=== PATIENT | female | born 1930 | race Caucasian/White ===

== ENCOUNTER 2018-10-26 21:37 | Emergency (ER) | payer MEDICARE, OTHER ==
[~2018-10-26] VITALS: Wt 115.0 kg
[~2018-10-26 21:37] MED LIST: AMLO5TAB4 PO; FURO20TA3 PO; GABA300C16 PO; GLIM4TAB PO; HYDR-843 PO; IBUP-1542 PO; LORA0.5T PO; MECL-77 PO; MELO7.5O2 PO; MTF1000T PO; OLME1TAB20 PO; PROP20TA4 PO; TRAM50TA2 PO; ZOLP5TAB7 PO
[2018-10-26] MEDS ORDERED: SOD CHLORIDE 0.9% 1,000 ML IV STA (21:44)
[2018-10-26] MEDS ORDERED: morphine 4 MG/ML VIAL IV STA (21:58)
--- NOTE | 2018-10-26 23:41 | ERD ---
ER Documentation Chief Complaint Chief Complaint bib ra from home for 4 days diarrhea, taking atb po HPI 88-year-old female with chronic right hip and leg pain who presents to the emergency room with diarrhea. The family reports at least 1 week of diarrhea possibly 2 weeks of diarrhea intermittently treated with Imodium and recently started on Flagyl over the last 2 days. The patient is having diarrhea mostly at night starting at 1 AM. Occasionally waking her up. However during the day the patient is having normal bowel movements. Patient denies any fevers or chills. Only antibiotic is the Flagyl started 2 days ago. No recent travel or sick contacts. Patient denies any significant abdominal discomfort. ROS All systems reviewed and are negative except as per history of present illness. Medications Home Meds Active Scripts Tramadol HCl (Tramadol HCl) 50 Mg Tablet, 100 MG PO q6h PRN for PAIN, #30 TAB Prov:AMINTA CHENG 11/10/15 Meloxicam* (Mobic*) 7.5 Mg/5 Ml Oral.susp, 7.5 MG PO BID, #60 ML Prov:AMINTA CHENG 11/10/15 Reported Medications Meclizine Hcl* (Meclizine Hcl*) 25 Mg Tablet, 25 MG PO Q8H PRN for DIZZINESS, TAB 11/08/15 Hydroxyzine Hcl* (Hydroxyzine Hcl*) 25 Mg Tablet, 25 MG PO Q8H PRN for ITCHING, #30 TAB 11/08/15 Propranolol Hcl* (Propranolol Hcl*) 20 Mg Tablet, 20 MG PO TID, TAB 11/08/15 Olmesartan-Hydrochlorothiazide (Benicar HCT) 40-25 Mg Tablet, 1 TAB PO DAILY, #30 TAB 11/08/15 Glimepiride* (Glimepiride*) 4 Mg Tablet, 4 MG PO BID, TAB 16 Furosemide* (Furosemide*) 20 Mg Tablet, 20 MG PO DAILY, #60 TAB 11/08/15 Gabapentin* (Gabapentin*) 300 Mg Capsule, 300 MG PO QHS, #60 CAP 11/08/15 Metformin* (Glucophage*) 1,000 Mg Tablet, 1000 MG PO BID, #60 TAB 11/08/15 Zolpidem Tartrate* (Zolpidem Tartrate*) 5 Mg Tablet, 5 MG PO QHS PRN for INSOMNIA, #30 TAB 11/08/15 Lorazepam* (Lorazepam*) 0.5 Mg Tablet, 0.5 MG PO Q8 PRN for ANXIETY, TAB 11/08/15 Ibuprofen* (Ibuprofen*) 600 Mg Tablet, 600 MG PO Q6H PRN for PAIN, TAB 11/08/15 Amlodipine Besylate* (Norvasc*) 5 Mg Tablet, 5 MG PO DAILY, TAB 11/08/15 Allergies Allergies: Coded Allergies: No Known Allergy (Unverified , 11/08/15) PMhx/Soc History of Surgery: No Anesthesia Reaction: No Hx Neurological Disorder: No Hx Respiratory Disorders: No Hx Cardiac Disorders: No Hx Psychiatric Problems: No Hx Miscellaneous Medical Probl: No Hx Alcohol Use: No Hx Substance Use: No Hx Tobacco Use: No Smoking Status: Never smoker FmHx Family History: No diabetes Physical Exam Vitals Vital Signs Date Temp Pulse Resp B/P (MAP) Pulse Ox O2 O2 Flow FiO2 Time Delivery Rate 10/26/18 98.7 85 18 126/65 100 21:41 (85) 10/26/18 98.7 82 18 130/70 96 Room Air 21:41 (90) Physical Exam General: Well developed, well nourished, no acute distress Head: Normocephalic, atraumatic. Eyes: Pupils equally reactive, EOM intact ENT: Moist mucous membranes Neck: Supple, no lymphadenopathy Respiratory: Lungs clear bilaterally, no distress Cardiovascular: RRR, no murmurs, rubs, or gallops Abdominal: Soft, non-tender, non-distended, no peritoneal signs : Deferred MSK: No edema, no unilateral swelling, 5/5 strength Neurologic: Alert and oriented, moving all extremities, normal speech, no focal weakness, no cerebellar signs Skin: No rash Psych: Normal mood Result Diagram: 10/26/18214910/26/182149 Results 24 hrs Laboratory Tests Test 10/26/18 21:50 White Blood Count 7.2 10^3/ul Red Blood Count 3.80 10^6/ul Hemoglobin 10.1 g/dl Hematocrit 33.2 % Mean Corpuscular Volume 87.4 fl Mean Corpuscular Hemoglobin 26.6 pg Mean Corpuscular Hemoglobin Concent 30.4 g/dl Red Cell Distribution Width 13.5 % Platelet Count 276 10^3/UL Mean Platelet Volume 9.8 fl Immature Granulocytes % 0.600 % Neutrophils % 66.1 % Lymphocytes % 21.1 % Monocytes % 8.0 % Eosinophils % 3.5 % Basophils % 0.7 % Nucleated Red Blood Cells % 0.0 /100WBC Immature Granulocytes # 0.040 10^3/ul Neutrophils # 4.8 10^3/ul Lymphocytes # 1.5 10^3/ul Monocytes # 0.6 10^3/ul Eosinophils # 0.3 10^3/ul Basophils # 0.1 10^3/ul Nucleated Red Blood Cells # 0.0 10^3/ul Sodium Level 138 mmol/L Potassium Level 3.9 mmol/L Chloride Level 103 mmol/L Carbon Dioxide Level 27 mmol/L Anion Gap 8 Blood Urea Nitrogen 7 mg/dl Creatinine 0.62 mg/dl Est Glomerular Filtrat Rate mL/min mL/min Glucose Level 184 mg/dl Calcium Level 10.0 mg/dl Total Bilirubin 0.1 mg/dl Direct Bilirubin 0.00 mg/dl Indirect Bilirubin 0.1 mg/dl Aspartate Amino Transf (AST/SGOT) 17 IU/L Alanine Aminotransferase (ALT/SGPT) 11 IU/L Alkaline Phosphatase 47 IU/L Total Protein 6.8 g/dl Albumin 3.9 g/dl Globulin 2.90 g/dl Albumin/Globulin Ratio 1.34 Lipase 35 U/L Current Medications Medications Dose Sig/Mine Start Time Status Last (Trade) Ordered Route PRN Stop Time Admin Dose Reason Admin Sodium 1,000 ml @ Q1H STAT 10/26/18 DC 10/26/18 Chloride 1,000 mls/hr IV 21:44 21:56 10/26/18 22:43 Morphine 4 mg ONCE STAT 10/26/18 DC 10/26/18 Sulfate IV 21:58 22:01 (morphine) 10/26/18 21:59 Procedures/MDM EKG, MONITORS, & DIAGNOSTIC IMAGING: CT IMPRESSION: No evidence of urolithiasis, obstructive uropathy, diverticulitis or appendicitis. Cardiomegaly. Mild interstitial edema. Vascular calcifications. LAB INTERPRETATION: I reviewed the laboratory testing and it shows no evidence of acute process MEDICAL DECISION MAKING: The patient has 1-2 weeks of diarrheal illness likely viral in etiology. However, given the patient's age I do believe laboratory testing and CT imaging would be appropriate. Patient has no significant risk factors for C. difficile colitis though stool culture and C. difficile collection would be appropriate. However, the patient has not had a bowel movement during her 2-hour stay in the emergency department. It is odd that the patient is only having diarrhea starting at night. During the day she is having regular bowel movements. Unclear etiology of this process. ER COURSE: * Laboratory testing and diagnostic imaging is otherwise unrevealing. * I had an in-depth conversation with the patient's family and discussed inpatient versus outpatient management. I discussed that there is limited utility to hospitalization at this time other than cleaning the patient as needed and collecting stool culture and C. difficile colitis testing. However, the patient feels very strongly about going home. I believe it is reasonable. Her laboratory testing and diagnostic imaging do not suggest significant need for hospitalization. I discussed the need to follow-up with primary care physician and collect stool sample for testing at home. The family feels very comfortable with this. We discussed probiotics. We discussed return precautions. CONSULTATION: None DISPOSITION PLAN: The patient does not have an identifiable emergent medical condition that warrants inpatient hospitalization at this time. The patient is deemed safe for discharge with outpatient follow-up. We discussed follow up with the patient's primary care doctor within 24 to 48 hours as needed. We also discussed return to the emergency room for worsening symptoms or worsening condition. Outpatient referral: None required Discharge Medications: None required Departure Diagnosis: Primary Impression: Diarrhea Diarrhea type: unspecified type Qualified Codes: R19.7 - Diarrhea, unspecified Additional Impression: Chronic pain of right hip Condition: Stable Patient Instructions: Treating Diarrhea Referrals: [facility] YOU HAVE RECEIVED A MEDICAL SCREENING EXAM AND THE RESULTS INDICATE THAT YOU DO NOT HAVE A CONDITION THAT REQUIRES URGENT TREATMENT IN THE EMERGENCY DEPARTMENT. FURTHER EVALUATION AND TREATMENT OF YOUR CONDITION CAN WAIT UNTIL YOU ARE SEEN IN YOUR DOCTORS OFFICE WITHIN THE NEXT 1-2 DAYS. IT IS YOUR RESPONSIBILITY TO MAKE AN APPOINTMENT FOR FOLOW-UP CARE. IF YOU HAVE A PRIMARY DOCTOR --you should call your primary doctor and schedule an appointment IF YOU DO NOT HAVE A PRIMARY DOCTOR YOU CAN CALL OUR PHYSICIAN REFERRAL HOTLINE AT IF YOU CAN NOT AFFORD TO SEE A PHYSICIAN YOU CAN CHOSE FROM THE FOLLOWING [facility], [facility] CL[facility]ICS [facility] [address] [facility] [address] [facility] [address] [facility] [address] [facility] [facility] [address] [facility]. [facility]. [address] [facility]. [facility] YOU HAVE RECEIVED A MEDICAL SCREENING EXAM AND THE RESULTS INDICATE THAT YOU DO NOT HAVE A CONDITION THAT REQUIRES URGENT TREATMENT IN THE EMERGENCY DEPARTMENT. FURTHER EVALUATION AND TREATMENT OF YOUR CONDITION CAN WAIT UNTIL YOU ARE SEEN IN YOUR DOCTORS OFFICE WITHIN THE NEXT 1-2 DAYS. IT IS YOUR RESPONSIBILITY TO MAKE AN APPOINTMENT FOR FOLOW-UP CARE. IF YOU HAVE A PRIMARY DOCTOR --you should call your primary doctor and schedule and appointment IF YOU DO NOT HAVE A PRIMARY DOCTOR YOU CAN CALL OUR PHYSICIAN REFERRAL HOTLINE AT . IF YOU CAN NOT AFFORD TO SEE A PHYSICIAN YOU CAN CHOSE FROM THE FOLLOWING [facility] INSTITUTIONS: [facility] [address] [place] [address] [facility] [address] [place], [place] [id number] [place] [address] + [facility] [address] [place] [address] Additional Instructions: Call your primary care doctor TOMORROW for an appointment during the next 2-3 days.See the doctor sooner or return here if your condition worsens before your appointment time. Please return for decreased urine output, difficulty caring for the patient or any worsening symptoms. GILMA KILLIAN MD Oct 26, 2018 23:41
[2018-10-26 23:44] VITALS: BP 156/65; PULSE 88; RESP 20
[2018-10-27] MEDS ORDERED: DOXE25CA2 PO (00:13)
[2018-10-27] MEDS ORDERED: CARV25TA79 PO (00:13)
[2018-10-27] MEDS ORDERED: LOSA100T15 PO (00:13)
[2018-10-27] MEDS ORDERED: DEXL60CA2 PO (00:13)
[2018-10-27] MEDS ORDERED: MIRA50TA PO (00:13)
[2018-10-27] MEDS ORDERED: SERT25TA83 PO (00:13)
== END 2018-10-26 23:44 | disposition home or self-care (01) ==
LOC: E/R 21:37
DX: R19.7 Diarrhea, unspecified (principal); M25.551 Pain in right hip; Z79.84 Long term (current) use of oral hypoglycemic drugs
CPT/HCPCS: 36415; 74176; 80053; 83690; 85025; 96361; 96374; 99285; J2270; J7030